=== PATIENT | female | born 2000 | race Caucasian/White ===

== ENCOUNTER 2023-10-05 21:33 | Emergency (ER) | payer BC, SELFPAY ==
[2023-10-05 21:47] VITALS: BP 118/70
--- NOTE | 2023-10-05 22:36 | ED.SKININJ ---
HPI-Injury
General
Chief Complaint: Bite
Source: patient
Exam Limitations: none
Time Seen by Provider: 10/05/23 22:31
Travel History
Have you had any contact with someone who has COVID-19?: No
Do you have any symptoms of coronavirus? Fever > 100 degrees, chills, cough, shortness of breath, sore throat, loss of taste or smell, muscle aches, or headache?: No
History of Present Illness-Injury
Is this injury a work related problem?: No
Initial Injury comments:
Patient patient bit by known dog. Abrasion to the right fourth finger. Last tetanus months ago.
Past History
Past History
ED Past Medical History: None
ED Past Surgical History: None
Phy Exam
Physical Exam
Physical Exam:
General: Nontoxic appearing in no distress
Skin: Warm and dry, no rash
Neuro: Alert, nontoxic, grossly nonfocal
Psychiatric: Good eye contact and appropriate
Musculoskeletal: Abrasion to the right fourth digit laterally. Very superficial abrasion to the upper arm. Motor or sensory neurovascular intact. No deep laceration
Course
Orders/Labs/Results
Orders:
Orders
10/05/23 22:36
Amoxicillin 875 mg/Clav 125 mg [Augmentin 875 mg/125 mg] 1 tablet PO NOW STA
Vital Signs
Initial and Last Documented VS:
Initial Vital Signs
Temp Pulse Resp BP Pulse Ox
98.8 F 81 18 118/70 94
10/05/23 21:47 10/05/23 21:47 10/05/23 21:47 10/05/23 21:47 10/05/23 21:47
Last Documented Vital Signs
Temp Pulse Resp BP Pulse Ox
98.8 F 81 18 118/70 94
10/05/23 21:47 10/05/23 21:47 10/05/23 21:47 10/05/23 21:47 10/05/23 21:47
*Critical Care Note
Total Time (30-74mins, 75-104mins- exclusive of procedures): Not Applicable
Update Note
Update Note:
Laceration is superficial. Will clean and dress. Given location on the hand will cover with antibiotics. Tetanus up-to-date. Domestic animals and can be observed at home for rabies issues. Highly unlikely.
ED Attending Note
-
Portions of this chart may have been created with voice recognition software.� Occasional wrong word or��sound alike� substitutions may have occurred due to the inherent limitations of voice recognition software.
Discharge Plan
Departure
Patient Disposition: Home (Routine Discharge)
Date of Disposition: 10/05/23
Time of Disposition: 22:38
Patient with high blood pressure during this ER visit?: No
Discharge Problem:
Dog bite right hand
Instructions: Animal Bites (DC)
Prescriptions:
New
amoxicillin-pot clavulanate 875-125 mg tablet
1 tab PO BID Qty: 14 0RF
No Action
sulfamethoxazole-trimethoprim 1 TABLET tablet
1 tab PO BID Qty: 9 0RF
phenazopyridine 100 MG tablet
100 mg PO Q8 Qty: 5 0RF
Referrals:
Alise Sun, [Family Provider] - Follow up in 2-3 days
Interventions
Interventions:
*Risk Screen - Suicide Last Done: 10/05/23 22:30
*General Assessment Last Done: 10/05/23 22:30
*Neglect/Abuse Screening Last Done: 10/05/23 22:30
*Nursing Disposition Last Done: 10/05/23 22:45
ED-Skin Assessment Last Done: 10/05/23 22:08
Discharge Date and Time
Discharge Date/Time: 10/05/23 23:50
[2023-10-05] MEDS: AUGMENTIN 875 MG/125 MG 1 TABLET PO (22:43)
== END 2023-10-05 23:50 | disposition home or self-care (01) ==
LOC: EMR 21:33
PROVIDERS: EMERGENCY PHYSICIAN Emergency Medicine; FAMILY PHYSICIAN Family Medicine
DX: S61.451A Open bite of right hand, initial encounter (principal); S60.414A Abrasion of right ring finger, initial encounter; W54.0XXA Bitten by dog, initial encounter
CPT/HCPCS: 99283

== ENCOUNTER → 2024-06-21 06:28 | Day surgery (SDC) | payer BC, SELFPAY | LOC: GI 06:28 | PROVIDERS: ATTENDING PHYSICIAN Internal Medicine Gastroenterology | DX: R10.13 Epigastric pain (principal); K31.89 Other diseases of stomach and duodenum; K29.50 Unspecified chronic gastritis without bleeding | CPT/HCPCS: 43239; 88305; 88342 ==